=== PATIENT | male | born 1965 | race Hispanic/Latino ===

== ENCOUNTER 2020-03-11 15:03 | Inpatient (IN) | payer OTHER ==
--- NOTE | 2020-03-11 15:52 | RAD ---
EXAM: Single view of the chest HISTORY: Covid positive with pneumonia COMPARISON: None FINDINGS: Single view of the chest shows a normal sized cardiomediastinal silhouette. Multifocal airs pace opacities are seen in the lungs. This is greater in the lower lobes. The bones are unremarkable IMPRESSION: Multifocal pneumonia
[2020-03-11 16:10] LABS: Hemoglobin 6.9 g/dL (14.0-18.0); Mean Corpuscular HGB CONC 33.3 g/dL (32.0-36.0); Mean Corpuscular Hemoglobin 35.6 pg (27.0-31.0); Mean Platelet Volume 14.3 fL (7.4-10.4); Platelet Count 25 thou/uL (130-400); RBC Distribution Width 16.4 % (11.5-14.5); Red Blood Cell (RBC) Count 1.95 mill/uL (4.70-6.10); White Blood Cell (WBC) Count 8.5 thou/uL (4.8-10.8)
[2020-03-11 16:24] LABS: ALT (SGPT) 14 U/L (8-55); AST (SGOT) 42 U/L (5-34); Albumin 1.5 g/dL (3.5-5.0); Alkaline Phosphatase 65 U/L (40-110); Anion Gap 10 mmol/L (10-20); Anisocytosis SLIGHT = 6-15 cells (100X) (0-5/hpf); BUN (Urea Nitrogen) 44 mg/dL (8.4-25.7); Band 16 % (5-11); Bilirubin, Total 5.9 mg/dL (0.2-1.2); Calc. Creatinine Clearance 0 mL/min (70-130); Calcium 6.4 mg/dL (7.8-10.44); Carbon Dioxide 17 mmol/L (22-29); Chloride 100 mmol/L (98-107); Estimated GFR-MDRD 55; Globulin 3.6 g/dL (2.4-3.5); Glucose 96 mg/dL (70-105); MDiff Complete? YES; Macrocytosis SLIGHT = 6-15 cells (100X) (0-5/hpf); Metamyelocyte 1 % (0-0); Monocytes 1 % (0-10); Neutrophil 82 % (42-75); Ovalocytes SLIGHT = 2-5 cells (100X) (0-1/hpf); Platelet Morphology Comment Appears Decreased; Polychromasia SLIGHT = 2-3 cells (100X) (0-2/hpf); Potassium 4.1 mmol/L (3.5-5.1); Protein, Total 5.1 g/dL (6.0-8.3); Reflex for Review?? YES; Schistocytes SLIGHT = 2-5 cells (100X) (0-1/hpf); Sodium 123 mmol/L (136-145); Tear Drops SLIGHT = 2-5 cells (100X) (0-1/hpf)
[2020-03-11 17:00] LABS: Bilirubin 1+ (Negative); Blood, Urine Negative (Negative); Clarity Turbid (Clear); Glucose, Urine (Dipstick) Normal (Negative); Ketone, Urine Negative (Negative); Leukocyte 250 Leu/uL (Negative); Nitrite Negative (Negative); Protein, Urine (Dipstick) 10 mg/dL (Neg-Trace); RBC/HPF 0-3 HPF (0-3); Specific Gravity, Urine 1.016 (1.002-1.036); Squamous Epithelial 0-3 HPF (0-3); Urobilinogen Normal mg/dL (Less than 2); WBC/HPF 21-50 HPF (0-3)
[2020-03-11 17:03] LABS: Amphetamine Not Detected (NotDetected); Barbiturates Screen Not Detected (NotDetected); Benzodiazepine Screen Not Detected (NotDetected); Cocaine Metabolite Screen Not Detected (NotDetected); Medtox Control Line Valid? VALID (VALID); Medtox Reader # READER 1; Methadone Not Detected (NotDetected); Methamphetamine Not Detected (NotDetected); Opiate Screen Not Detected (NotDetected); Oxycodone Screen Not Detected (NotDetected); Phencyclidine (PCP) Not Detected (NotDetected); THC/Cannabinoid Screen Not Detected (NotDetected); Tricyclic Screen Not Detected (NotDetected)
[2020-03-11 17:06] LABS: Bacteria/HPF Rare-Few HPF (None Seen)
[2020-03-11] MEDS ORDERED: Azithromycin 500 MG VIAL ONE (17:51)
[2020-03-11] MEDS ORDERED: Ondansetron ODT 4 MG TAB PO PRN (18:30)
[2020-03-11] MEDS ORDERED: Acetaminophen 325 MG TAB PO PRN (18:30)
[2020-03-11] MEDS ORDERED: Ondansetron PF 4 MG/2 ML Vial IVP PRN (18:30)
[2020-03-11 20:10] VITALS: BMI 33.9
[2020-03-11 20:26] LABS: INR-International Normal Ratio 2.5; PTT 47.7 sec (22.9-36.1); Prothrombin Time 26.4 sec (12.0-14.7)
[2020-03-11] MEDS: Albumin 25% 25 GM/100 ML BOT IVPB SCH (20:40)
[2020-03-11] MEDS: Famotidine 20 MG TAB PO SCH (20:42)
[2020-03-11] MEDS: Ribavirin 200 MG CAP PO SCH (20:59)
[2020-03-12] MEDS: Albumin 25% 25 GM/100 ML BOT IVPB SCH ×3 (01:22→14:30)
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
[2020-03-12 05:46] LABS: #Lymphocytes 0.2 thou/uL (1.20-3.40); #Monocytes 0.1 thou/uL (0.11-0.59); #Neutrophils 1.9 thou/uL (1.40-6.50); %Basophils 0.9 % (0.0-1.0); %Eosinophils 0.3 % (0.0-10.0); %Lymphocytes 10.1 % (21.0-51.0); %Monocytes 4.1 % (0.0-10.0); %Neutrophils 84.6 % (42.0-75.0); Hemoglobin 7.5 g/dL (14.0-18.0); Mean Corpuscular HGB CONC 33.7 g/dL (32.0-36.0); Mean Corpuscular Hemoglobin 35.2 pg (27.0-31.0); Mean Platelet Volume 16.7 fL (7.4-10.4); Platelet Count 17 thou/uL (130-400); RBC Distribution Width 17.5 % (11.5-14.5); Red Blood Cell (RBC) Count 2.13 mill/uL (4.70-6.10); White Blood Cell (WBC) Count 2.2 thou/uL (4.8-10.8)
[2020-03-12 05:59] LABS: ALT (SGPT) 14 U/L (8-55); AST (SGOT) 24 U/L (5-34); Albumin 1.8 g/dL (3.5-5.0); Alkaline Phosphatase 53 U/L (40-110); Anion Gap 8 mmol/L (10-20); BUN (Urea Nitrogen) 47 mg/dL (8.4-25.7); Bilirubin, Total 6.3 mg/dL (0.2-1.2); Calc. Creatinine Clearance 116 mL/min (70-130); Calcium 6.9 mg/dL (7.8-10.44); Carbon Dioxide 20 mmol/L (22-29); Chloride 104 mmol/L (98-107); Estimated GFR-MDRD 74; Globulin 2.8 g/dL (2.4-3.5); Glucose 159 mg/dL (70-105); Potassium 3.6 mmol/L (3.5-5.1); Protein, Total 4.6 g/dL (6.0-8.3); Sodium 128 mmol/L (136-145)
[2020-03-12] MEDS: Famotidine 20 MG TAB PO SCH ×2 (08:23→20:50)
[2020-03-12] MEDS: Ribavirin 200 MG CAP PO SCH ×2 (08:23→20:50)
--- NOTE | 2020-03-12 12:25 | CON ---
DATE OF CONSULTATION: 03/12/2020 CONSULTING PHYSICIAN: Dr. Mcbride. REASON FOR CONSULTATION: Acute kidney injury. REASON FOR ADMISSION: Leg pain. HISTORY OF PRESENT ILLNESS: This is a 54-year-old male with history of hepatitis C, cirrhosis, CHF, came to the hospital with worsening renal function and edema, was found to have hepatorenal syndrome. He was started on albumin. His creatinine is better. His creatinine on admission was 1.36 and now it is 1.04. Sodium was 123, up to 128. He is also COVID positive. PAST MEDICAL HISTORY: Positive for hepatitis C, cirrhosis, CHF, thrombocytopenia. PAST SURGICAL HISTORY: Elbow surgery. HOME MEDICATIONS: Reviewed. ALLERGIES: NO KNOWN DRUG ALLERGIES. SOCIAL HISTORY: No smoking, alcohol, or illicit drug use. FAMILY HISTORY: No history of kidney disease. REVIEW OF SYSTEMS: Could not be obtained. PHYSICAL EXAMINATION: The patient is on COVID isolation. VITAL SIGNS: Temperature 98.2, pulse 72, respiratory rate 18, blood pressure 116/68. LABORATORY DATA: Potassium 3.6, sodium 128, creatinine is 1.04. ASSESSMENT AND PLAN: 1. Acute kidney injury, improved with albumin infusion, most likely from hypovolemia, so continue albumin, 4 to 8 doses. Monitor renal function. 2. Hyponatremia, better too with albumin infusion. 3. Mild acidosis. 4. Hypocalcemia. 5. Hypoalbuminemia. 6. History of cirrhosis. 7. Anemia of chronic disease. 8. Thrombocytopenia. Renal function is much better. Continue albumin infusion. Monitor renal function. Avoid nephrotoxins. I will sign off. Please call back with any questions. Job ID: [id number]
--- NOTE | 2020-03-12 13:12 | PDOC.HOSPP ---
- Subjective Encounter Date: 03/12/20 Subjective: Feeling a little bit better. Says he feels a little short of breath at times. Minimal cough. - Objective Vital Signs & Weight: Vital Signs (12 hours) Temp Pulse Resp BP Pulse Ox 03/12/20 09:00 98.2 F 76 18 116/68 96 03/12/20 08:00 96 03/12/20 05:32 97.9 F 79 20 111/65 93 L Weight Weight 223 lb 3.2 oz I&O: 03/11/20 03/12/20 03/13/20 06:59 06:59 06:59 Intake Total 350 0 Balance 350 0 Result Diagrams: 03/12/20 05:01 03/12/20 05:01 Hospitalist ROS - Medication Medications: Active Medications Generic Name Dose Route Start Last Admin Trade Name Freq PRN Reason Stop Dose Admin Albumin Human 25 gm 03/11/20 20:00 03/12/20 08:26 Albumin 25% IVPB 03/12/20 14:01 25 gm Q6H DIVYA Administration Famotidine 20 mg 03/11/20 21:00 03/12/20 08:23 Pepcid PO 20 mg BID DIVYA Administration Lactulose 10 gm 03/11/20 21:00 03/12/20 08:23 Lactulose PO 10 gm TID DIVYA Administration Ribavirin 400 mg 03/11/20 21:00 03/12/20 08:23 Ribavirin PO 400 mg BID DIVYA Administration - Exam General Appearance: NAD, awake alert General - other findings: Jaundiced Neck: supple, symmetric, no JVD, no thyromegaly, no lymphadenopathy, no carotid bruit Heart: RRR, no murmur, no gallops, no rubs, normal peripheral pulses Respiratory: CTAB, no wheezes, no rales, no ronchi, normal chest expansion, no tachypnea, normal percussion Gastrointestinal: soft, non-tender, distended Gastrointestinal - other findings: Some ascites. Not tense. Extremities - other findings: 3+ pitting edema both lower extremities to the level of the abdomen. Skin - other findings: Jaundiced. Pitting. Neurological: no new deficit Musculoskeletal: normal tone Psychiatric: normal affect, normal behavior, A&O x 3 Hosp A/P (1) Anasarca Code(s): R60.1 - GENERALIZED EDEMA Status: Acute (2) Hypotension Status: Acute (3) COVID-19 virus infection Code(s): U07.1 - COVID-19 Status: Acute (4) Cirrhosis Code(s): K74.60 - UNSPECIFIED CIRRHOSIS OF LIVER Status: Acute (5) Hepatitis C Code(s): B19.20 - UNSPECIFIED VIRAL HEPATITIS C WITHOUT HEPATIC COMA Status: Acute (6) Liver failure Status: Acute (7) Pancytopenia Code(s): D61.818 - OTHER PANCYTOPENIA Status: Acute (8) Hyponatremia Code(s): E87.1 - HYPO-OSMOLALITY AND HYPONATREMIA Status: Acute (9) Seizure disorder Code(s): G40.909 - EPILEPSY, UNSP, NOT INTRACTABLE, WITHOUT STATUS EPILEPTICUS Status: Acute (10) COLLINS (acute kidney injury) Code(s): N17.9 - ACUTE KIDNEY FAILURE, UNSPECIFIED Status: Acute (11) Hepatorenal syndrome Code(s): K76.7 - HEPATORENAL SYNDROME Status: Acute - Plan Anasarca: Secondary to liver failure. Sounds less likely to be related to significant heart failure based on the information given to me by the patient today. Hypotension: Secondary to poor oncotic pressures and dehydration. Improved with albumin. Hyponatremia: Secondary to chronic liver disease and acute kidney injury. Improved with albumin and some fluids. Hepatorenal syndrome: Patient has end-stage liver disease with severe hypoalbuminemia and anasarca. He has improved with albumin infusion. Appreciate nephrology consult. End-stage liver disease: Secondary to chronic hep C. GI consult appreciated. Discussed with GI. Not much more to be offered at this time. Continue with lactulose and diuretics. Hepatitis C: Patient remains on antiviral therapy. COVID 19 infection: Patient appears to be tolerating this very well. Not really requiring much in the way of oxygen supplementation. Continue with Decadron. Severe pancytopenia: Secondary to his chronic liver disease. Stable. Possible liver masses: Patient reports that he was told in May that he had a nodule on his liver. He had follow-up imaging sometime around August and told that there was a second 1 but that the lesions were not enlarging and they were not of concern. He will need to follow-up with [facility] [[email or web address]] as previously arranged for continued follow-up of this. Seizure disorder: Stable. Continue Keppra. Coagulopathy: Secondary to chronic liver disease. Disposition: If patient does not develop significant hypoxia and otherwise remained stable by tomorrow he can likely be discharged to an infirmary.
[2020-03-12] MEDS: Dexamethasone 6 MG in Sodium Chloride 0.9% 50 ML IVPB SCH (14:17)
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
[2020-03-13] MEDS: Famotidine 20 MG TAB PO SCH ×2 (07:51→20:52)
[2020-03-13] MEDS: Ribavirin 200 MG CAP PO SCH (07:52)
[2020-03-13] MEDS: Dexamethasone 6 MG in Sodium Chloride 0.9% 50 ML IVPB SCH (08:28)
[2020-03-13 13:36] LABS: #Lymphocytes 0.4 thou/uL (1.20-3.40); #Monocytes 0.4 thou/uL (0.11-0.59); #Neutrophils 6.2 thou/uL (1.40-6.50); %Basophils 0.1 % (0.0-1.0); %Eosinophils 0.1 % (0.0-10.0); %Lymphocytes 5.1 % (21.0-51.0); %Monocytes 5.2 % (0.0-10.0); %Neutrophils 89.6 % (42.0-75.0); Hemoglobin 9.4 g/dL (14.0-18.0); Mean Corpuscular HGB CONC 33.3 g/dL (32.0-36.0); Mean Corpuscular Hemoglobin 34.9 pg (27.0-31.0); Mean Platelet Volume 14.4 fL (7.4-10.4); Platelet Count 39 thou/uL (130-400); RBC Distribution Width 17.6 % (11.5-14.5); White Blood Cell (WBC) Count 6.9 thou/uL (4.8-10.8)
[2020-03-13 14:00] LABS: Anion Gap 10 mmol/L (10-20); BUN (Urea Nitrogen) 29 mg/dL (8.4-25.7); Calc. Creatinine Clearance 186 mL/min (70-130); Carbon Dioxide 19 mmol/L (22-29); Chloride 109 mmol/L (98-107); Estimated GFR-MDRD Greater than 90; Glucose 174 mg/dL (70-105); Potassium 3.6 mmol/L (3.5-5.1); Sodium 134 mmol/L (136-145)
--- NOTE | 2020-03-13 18:07 | PDOC.HOSPP ---
- Subjective Encounter Date: 03/13/20 Encounter Time: 10:30 Subjective: Pt seen for followup re: COVID 19 pneumonia. Denies chest pain or shortness of breath. - Objective Vital Signs & Weight: Vital Signs (12 hours) Pulse Ox 03/13/20 08:00 95 Weight Weight 223 lb 3.2 oz I&O: 03/12/20 03/13/20 03/14/20 06:59 06:59 06:59 Intake Total 350 0 Output Total 600 Balance 350 0 -600 Result Diagrams: 03/13/20 13:23 03/13/20 13:23 Additional Labs: Labs and MARs reviewed by mn Hospitalist ROS - Medication Medications: Active Medications Generic Name Dose Route Start Last Admin Trade Name Freq PRN Reason Stop Dose Admin Famotidine 20 mg 03/11/20 21:00 03/13/20 07:51 Pepcid PO 20 mg BID DIVYA Administration Dexamethasone 6 mg/ Sodium 50.6 mls @ 100 mls/hr 03/12/20 09:00 03/13/20 08: 28 Chloride IVPB 50.6 mls DAILY DIVYA Administration Lactulose 10 gm 03/11/20 21:00 03/13/20 14:57 Lactulose PO Not Given TID DIVYA Hosp A/P - Plan - Assessment (1) COVID-19 virus pneumonia Code(s): U07.1 - COVID-19 Status: Acute (2) Hyponatremia Code(s): U07.1 - COVID-19 Status: Acute (3) Cirrhosis Code(s): K74.60 - UNSPECIFIED CIRRHOSIS OF LIVER Status: Chronic (4) Hepatitis C Code(s): B19.20 - UNSPECIFIED VIRAL HEPATITIS C WITHOUT HEPATIC COMA Status: Chronic (5) Liver failure Status: Chronic (6) Pancytopenia Code(s): D61.818 - OTHER PANCYTOPENIA Status: Chronic (7) Seizure disorder Code(s): G40.909 - EPILEPSY, UNSP, NOT INTRACTABLE, WITHOUT STATUS EPILEPTICUS Status: Acute (8) COLLINS (acute kidney injury) Code(s): N17.9 - ACUTE KIDNEY FAILURE, UNSPECIFIED Status: resolved (9) Hepatorenal syndrome Code(s): K76.7 - HEPATORENAL SYNDROME Status: Acute (10) Hypotension Status: Resolved - Plan COVID 19 pneumonia Patient clinically improving. Continue dexamethasone Anasarca: Secondary to liver failure. Sounds less likely to be related to significant heart failure based on the information given to me by the patient today. Hypotension: Improved with albumin. Hyponatremia: Sodium improved to 134. Hepatorenal syndrome: Patient has end-stage liver disease with severe hypoalbuminemia and anasarca. He has improved with albumin infusion. Appreciate nephrology consult. End-stage liver disease: Secondary to chronic hep C. Hepatitis C: GI service recommends discontinuing ribavirin and follow up with pt's GI specialist (ribavirin usually givedn with a second agent, can cause pancytopenia ). Severe pancytopenia: Stable. Possible liver masses: Needs to follow-up with [facility]. Seizure disorder: Stable. Pt is on Keppra. Coagulopathy: Secondary to chronic liver disease. Pt needs informary bed.
[2020-03-14] MEDS: Dexamethasone 6 MG in Sodium Chloride 0.9% 50 ML IVPB SCH (07:47)
[2020-03-14] MEDS: Famotidine 20 MG TAB PO SCH ×2 (07:47→20:09)
--- NOTE | 2020-03-14 09:18 | PRG ---
DATE OF SERVICE: 03/13/2020 SUBJECTIVE: This is a 54-year-old elevation of The patient was also hyponatremic. He was seen by Nephrology and was advised to continue with IV albumin. The patient . Normally people usually take . I am really not sure . The patient is awake and alert . diet. OBJECTIVE: VITAL SIGNS: Afebrile, pulse . CARDIOVASCULAR SYSTEM: . ABDOMEN: RECOMMENDATION: 1. I would probably for the time being. 2. CBC and chem-7 ordered today . Job ID: [id number]
--- NOTE | 2020-03-14 12:33 | PRG ---
DATE OF SERVICE: 03/14/2020 SUBJECTIVE: This is a 54-year-old male, hospitalized because of ascites, generalized weakness, fatigue, hyponatremia, anemia, thrombocytopenia. The patient is know to have liver cirrhosis from before. Also has history of hepatitis C, but he was only taking ribavirin, which was discontinued yesterday because of the anemia and thrombocytopenia. He has markedly improved since his admission. He is on IV fluids. His labs are actually close to being normal. The sodium is back to normal at 134, potassium 3.6, chloride 109, bicarb is 19. His BUN is down to 29, creatinine is down to 0.65, glucose 174. His CBC again shows improvement. His hemoglobin is 9.4, hematocrit 28.2, platelet count is 39,000. PHYSICAL EXAMINATION: GENERAL: He appears comfortable. He is awake and alert and communicative. VITAL SIGNS: Afebrile. Pulse is 77, blood pressure 119/75. CARDIOVASCULAR: Normal heart sounds. LUNGS: Clear to auscultation. ABDOMEN: Soft. Abdomen is nontender. He has ascites. RECOMMENDATIONS: 1. Continue hydration. 2. Follow up labs. He is doing from GI standpoint much better and I will sign off from today. If there are any new issues, please call me back. Job ID: [id number]
--- NOTE | 2020-03-14 15:58 | PDOC.HOSPP ---
- Subjective Encounter Date: 03/14/20 Encounter Time: 10:30 Subjective: Patient was seen for follow-up for COVID-19 pneumonia. He reports feeling better. He denies any chest pain. Cough is better. - Objective Vital Signs & Weight: Vital Signs (12 hours) Temp Pulse Resp BP Pulse Ox 03/14/20 15:35 97.7 F 77 18 131/66 98 03/14/20 10:44 97 F L 77 18 119/73 96 03/14/20 08:15 97.3 F L 72 18 138/75 96 Weight Weight 223 lb 3.2 oz I&O: 03/13/20 03/14/20 03/15/20 06:59 06:59 06:59 Intake Total 0 Output Total 600 Balance 0 -600 Result Diagrams: 03/13/20 13:23 03/13/20 13:23 Additional Labs: Labs and MAR were reviewed by me. Hospitalist ROS - Review of Systems Respiratory: reports: cough, dry. denies: shortness of breath, hemoptysis, SOB with excertion, pleuritic pain, sputum, wheezing Cardiovascular: denies: chest pain, palpitations, orthopnea, paroxysmal noc. dyspnea, edema, light headedness - Medication Medications: Active Medications Generic Name Dose Route Start Last Admin Trade Name Freq PRN Reason Stop Dose Admin Famotidine 20 mg 03/11/20 21:00 03/14/20 07:47 Pepcid PO 20 mg BID DIVYA Administration Dexamethasone 6 mg/ Sodium 50.6 mls @ 100 mls/hr 03/12/20 09:00 03/14/20 07: 47 Chloride IVPB 50.6 mls DAILY DIVYA Administration Lactulose 10 gm 03/11/20 21:00 03/14/20 15:22 Lactulose PO 10 gm TID DIVYA Administration - Exam General Appearance: awake alert Eye: anicteric sclera ENT: moist mucosa Neck: supple Heart: RRR Respiratory: CTAB, no wheezes Gastrointestinal: soft, non-tender Extremities: no cyanosis Musculoskeletal: no muscle wasting Psychiatric: normal affect, normal behavior Hosp A/P - Plan - Assessment (1) COVID-19 virus pneumonia Code(s): U07.1 - COVID-19 Status: Acute (2) Hyponatremia Code(s): U07.1 - COVID-19 Status: Acute (3) Cirrhosis Code(s): K74.60 - UNSPECIFIED CIRRHOSIS OF LIVER Status: Chronic (4) Hepatitis C Code(s): B19.20 - UNSPECIFIED VIRAL HEPATITIS C WITHOUT HEPATIC COMA Status: Chronic (5) Liver failure Status: Chronic (6) Pancytopenia Code(s): D61.818 - OTHER PANCYTOPENIA Status: Chronic (7) Seizure disorder Code(s): G40.909 - EPILEPSY, UNSP, NOT INTRACTABLE, WITHOUT STATUS EPILEPTICUS Status: Acute (8) COLLINS (acute kidney injury) Code(s): N17.9 - ACUTE KIDNEY FAILURE, UNSPECIFIED Status: resolved (9) Hepatorenal syndrome Code(s): K76.7 - HEPATORENAL SYNDROME Status: Acute (10) Hypotension Status: Resolved - Plan COVID 19 pneumonia Patient clinically improving. Continue dexamethasone Anasarca: Secondary to liver failure. Hypotension: Improved with albumin. Hyponatremia: Check AM labs. Hepatorenal syndrome: Patient has end-stage liver disease with severe hypoalbuminemia and anasarca. He has improved with albumin infusion. Appreciate nephrology consult. End-stage liver disease: Secondary to chronic hep C. Hepatitis C: GI service recommends discontinuing ribavirin and follow up with pt's GI specialist (ribavirin usually given with a second agent, can cause pancytopenia) . Severe pancytopenia: Stable. Possible liver masses: Needs to follow-up with [facility]. Seizure disorder: Stable. Pt is on Keppra. Coagulopathy: Secondary to chronic liver disease. Pt needs [facility] bed.
[2020-03-14] MEDS ORDERED: levETIRAcetam 500 MG TAB PO SCH (16:45)
[2020-03-15 05:29] LABS: #Lymphocytes 0.3 thou/uL (1.20-3.40); #Monocytes 0.3 thou/uL (0.11-0.59); %Eosinophils 0.5 % (0.0-10.0); %Lymphocytes 6.8 % (21.0-51.0); %Monocytes 5.5 % (0.0-10.0); %Neutrophils 87.1 % (42.0-75.0); Hemoglobin 8.9 g/dL (14.0-18.0); Mean Corpuscular HGB CONC 31.9 g/dL (32.0-36.0); Mean Corpuscular Hemoglobin 33.7 pg (27.0-31.0); Mean Platelet Volume 13.3 fL (7.4-10.4); Platelet Count 35 thou/uL (130-400); RBC Distribution Width 17.9 % (11.5-14.5); Red Blood Cell (RBC) Count 2.64 mill/uL (4.70-6.10); White Blood Cell (WBC) Count 4.6 thou/uL (4.8-10.8)
[2020-03-15 05:44] LABS: Anion Gap 6 mmol/L (10-20); BUN (Urea Nitrogen) 15 mg/dL (8.4-25.7); Calc. Creatinine Clearance 216 mL/min (70-130); Calcium 7.2 mg/dL (7.8-10.44); Carbon Dioxide 23 mmol/L (22-29); Chloride 111 mmol/L (98-107); Estimated GFR-MDRD Greater than 90; Glucose 124 mg/dL (70-105); Potassium 3.6 mmol/L (3.5-5.1); Sodium 136 mmol/L (136-145)
[2020-03-15] MEDS: levETIRAcetam 500 MG TAB PO SCH (08:29)
[2020-03-15] MEDS: Famotidine 20 MG TAB PO SCH ×2 (08:29→20:21)
[2020-03-15] MEDS: Dexamethasone 6 MG in Sodium Chloride 0.9% 50 ML IVPB SCH (08:29)
--- NOTE | 2020-03-15 13:35 | DIS ---
DATE OF ADMISSION: 03/11/2020 DATE OF DISCHARGE: 03/15/2020 PRIMARY CARE PROVIDER: Unknown. DISCHARGE DIAGNOSES: 1. COVID-19 pneumonia. 2. Hyponatremia. 3. Pancytopenia. 4. Chronic hepatitis C. 5. Acute kidney injury. CONDITION OF THE PATIENT ON THE DAY OF DISCHARGE: Stable. I assessed Mr. Schulte on the day of discharge. He denies any chest pain or shortness of breath. Vital signs are stable. S1 and S2 are heard, regular. Lungs are clear to auscultation bilaterally. CONSULTATIONS DURING THIS HOSPITALIZATION: Nephrology, Dr. Pruitt and Gastroenterology, Dr. Peterson. DISCHARGE MEDICATIONS: 1. The patient has been advised to stop ribavirin and to follow up with his liver specialist regarding treatment of hepatitis C. 2. His discharge medications include Coreg 12.5 mg daily. 3. Lasix 20 mg 2 times a day. 4. Lactulose 20 g three times a day. 5. Keppra 250 mg daily. 6. Omeprazole 10 mg daily. 7. Potassium chloride 20 mEq daily. 8. Dexamethasone 6 mg daily for 5 more days. HOSPITAL COURSE: Mr. Schulte is a pleasant 54-year-old gentleman who was admitted to [facility] on March 11, 2020 for COVID pneumonia and hyponatremia. He was seen by Nephrology and Gastroenterology Services. Gastroenterology Service recommended discontinuing ribavirin since it is not advisable to use it as monotherapy and could cause pancytopenia. Ribavirin was discontinued, with improvement in his blood counts. He received dexamethasone for COVID-19 pneumonia, which is being continued at the time of discharge. He also had acute kidney injury at the time of admission. Both acute kidney injury and hyponatremia improved with albumin infusion. He is being discharged to [facility] for further management. On the day of discharge, he has sodium of 136, potassium of 3.6, and creatinine 0.56. White count 4600, hemoglobin 8.9, and platelet count 35,000. POST-ACUTE CARE FOLLOWUP: With primary care provider in 3 days. The patient is also advised to follow up with his liver specialist. DIET: Heart healthy. ACTIVITY: No restrictions. DISCHARGE DESTINATION: To [facility] with [facility]. Total amount of time spent coordinating this discharge: 33 minutes. Job ID: [id number]
--- NOTE | 2020-03-15 18:47 | PDOC.HOSPP ---
- Subjective Encounter Date: 03/15/20 Encounter Time: 18:45 Subjective: Pt seen for followup re: pneumonia due to COVID-19. Feels better today. - Objective Vital Signs & Weight: Vital Signs (12 hours) Temp Pulse Resp BP Pulse Ox 03/15/20 08:00 98.2 F 75 18 125/71 96 Weight Weight 223 lb 3.2 oz I&O: 03/14/20 03/15/20 03/16/20 06:59 06:59 06:59 Output Total 600 200 Balance -600 -200 Result Diagrams: 03/15/20 05:04 03/15/20 05:04 Additional Labs: Labs and MARs reviewed by pa Hospitalist ROS - Review of Systems Respiratory: reports: cough, dry. denies: shortness of breath, hemoptysis, SOB with excertion, pleuritic pain, sputum, wheezing Gastrointestinal: denies: nausea, vomiting, abdominal pain, diarrhea, constipation, melena - Medication Medications: Active Medications Generic Name Dose Route Start Last Admin Trade Name Freq PRN Reason Stop Dose Admin Famotidine 20 mg 03/11/20 21:00 03/15/20 08:29 Pepcid PO 20 mg BID DIVYA Administration Dexamethasone 6 mg/ Sodium 51.5 mls @ 101.756 mls/hr 03/15/20 09:00 03/15/20 08:29 Chloride IVPB 51.5 mls DAILY DIVYA Administration Lactulose 10 gm 03/11/20 21:00 03/15/20 15:46 Lactulose PO 10 gm TID DIVYA Administration Levetiracetam 250 mg 03/15/20 09:00 03/15/20 08:29 Keppra PO 250 mg QAM DIVYA Administration - Exam General - other findings: Obese Eye: anicteric sclera ENT: normocephalic atraumatic Heart: RRR Respiratory: CTAB Gastrointestinal: soft, non-tender Extremities: no cyanosis Psychiatric: normal affect, normal behavior Hosp A/P - Plan - Assessment (1) COVID-19 virus pneumonia Code(s): U07.1 - COVID-19 Status: Acute (2) Hyponatremia Code(s): U07.1 - COVID-19 Status: Resolved (3) Cirrhosis Code(s): K74.60 - UNSPECIFIED CIRRHOSIS OF LIVER Status: Chronic (4) Hepatitis C Code(s): B19.20 - UNSPECIFIED VIRAL HEPATITIS C WITHOUT HEPATIC COMA Status: Chronic (5) Liver failure Status: Chronic (6) Pancytopenia Code(s): D61.818 - OTHER PANCYTOPENIA Status: Chronic (7) Seizure disorder Code(s): G40.909 - EPILEPSY, UNSP, NOT INTRACTABLE, WITHOUT STATUS EPILEPTICUS Status: Acute (8) COLLINS (acute kidney injury) Code(s): N17.9 - ACUTE KIDNEY FAILURE, UNSPECIFIED Status: resolved (9) Hepatorenal syndrome Code(s): K76.7 - HEPATORENAL SYNDROME Status: Acute (10) Hypotension Status: Resolved - Plan COVID 19 pneumonia Patient clinically improved, continue Decadron. Anasarca: Secondary to liver failure. Hypotension: Improved Hyponatremia: resolved Hepatorenal syndrome: Patient has end-stage liver disease with severe hypoalbuminemia and anasarca. He has improved with albumin infusion. Appreciate nephrology consult. End-stage liver disease: Secondary to chronic hep C. Hepatitis C: Ribavirin discontinued Severe pancytopenia: Stable. Possible liver masses: Needs to follow-up with [facility]. Seizure disorder: Stable. Pt is on Keppra. Coagulopathy: Secondary to chronic liver disease. Pt needs [facility] bed.
[2020-03-16 06:33] LABS: #Lymphocytes 0.5 thou/uL (1.20-3.40); #Monocytes 0.3 thou/uL (0.11-0.59); #Neutrophils 5.1 thou/uL (1.40-6.50); %Eosinophils 0.5 % (0.0-10.0); %Lymphocytes 7.9 % (21.0-51.0); %Monocytes 5.7 % (0.0-10.0); %Neutrophils 85.9 % (42.0-75.0); Hemoglobin 9.6 g/dL (14.0-18.0); Mean Corpuscular HGB CONC 32.1 g/dL (32.0-36.0); Mean Corpuscular Hemoglobin 34.1 pg (27.0-31.0); Platelet Count 37 thou/uL (130-400); RBC Distribution Width 18.1 % (11.5-14.5); Red Blood Cell (RBC) Count 2.82 mill/uL (4.70-6.10); White Blood Cell (WBC) Count 5.9 thou/uL (4.8-10.8)
[2020-03-16 06:49] LABS: Anion Gap 7 mmol/L (10-20); BUN (Urea Nitrogen) 13 mg/dL (8.4-25.7); Calc. Creatinine Clearance 202 mL/min (70-130); Calcium 7.4 mg/dL (7.8-10.44); Carbon Dioxide 25 mmol/L (22-29); Chloride 110 mmol/L (98-107); Estimated GFR-MDRD Greater than 90; Glucose 113 mg/dL (70-105); Potassium 3.8 mmol/L (3.5-5.1); Sodium 138 mmol/L (136-145)
[2020-03-16] MEDS: levETIRAcetam 500 MG TAB PO SCH (08:05)
[2020-03-16] MEDS: Famotidine 20 MG TAB PO SCH ×2 (08:05→20:35)
[2020-03-16] MEDS: Dexamethasone 6 MG in Sodium Chloride 0.9% 50 ML IVPB SCH (08:05)
--- NOTE | 2020-03-16 20:08 | PDOC.HOSPP ---
- Subjective Encounter Date: 03/16/20 Encounter Time: 20:06 Subjective: Pt seen for followup for COVID 19 pneumonia. No new complaints. - Objective Vital Signs & Weight: Vital Signs (12 hours) Temp Pulse Resp BP Pulse Ox 03/16/20 08:20 97.8 F 82 18 128/80 98 Weight Weight 223 lb 3.2 oz I&O: 03/15/20 03/16/20 03/17/20 06:59 06:59 06:59 Intake Total 600 Output Total 200 600 Balance -200 0 Result Diagrams: 03/16/20 06:13 03/16/20 06:13 Additional Labs: Labs and MARs reviewed by [place] Hospitalist ROS - Review of Systems Constitutional: denies: fever, chills, sweats, weakness, malaise ENT: denies: throat swelling Respiratory: denies: cough, shortness of breath Cardiovascular: denies: chest pain, palpitations, orthopnea, paroxysmal noc. dyspnea, edema, light headedness Gastrointestinal: denies: nausea, vomiting, abdominal pain, diarrhea, constipation, melena, hematochezia - Medication Medications: Active Medications Generic Name Dose Route Start Last Admin Trade Name Freq PRN Reason Stop Dose Admin Famotidine 20 mg 03/11/20 21:00 03/16/20 08:05 Pepcid PO 20 mg BID DIVYA Administration Dexamethasone 6 mg/ Sodium 51.5 mls @ 101.756 mls/hr 03/15/20 09:00 03/16/20 08:05 Chloride IVPB 51.5 mls DAILY DIVYA Administration Lactulose 10 gm 03/11/20 21:00 03/16/20 15:02 Lactulose PO Not Given TID DIVYA Levetiracetam 250 mg 03/15/20 09:00 03/16/20 08:05 Keppra PO 250 mg QAM DIVYA Administration - Exam General Appearance: awake alert Eye: anicteric sclera ENT: moist mucosa Neck: supple Heart: no gallops, no rubs Respiratory: no wheezes, no rales Gastrointestinal: soft Psychiatric: normal affect, normal behavior Hosp A/P - Plan - Assessment (1) COVID-19 virus pneumonia Code(s): U07.1 - COVID-19 Status: Acute (2) Hyponatremia Code(s): U07.1 - COVID-19 Status: Resolved (3) Cirrhosis Code(s): K74.60 - UNSPECIFIED CIRRHOSIS OF LIVER Status: Chronic (4) Hepatitis C Code(s): B19.20 - UNSPECIFIED VIRAL HEPATITIS C WITHOUT HEPATIC COMA Status: Chronic (5) Liver failure Status: Chronic (6) Pancytopenia Code(s): D61.818 - OTHER PANCYTOPENIA Status: Chronic (7) Seizure disorder Code(s): G40.909 - EPILEPSY, UNSP, NOT INTRACTABLE, WITHOUT STATUS EPILEPTICUS Status: Acute (8) COLLINS (acute kidney injury) Code(s): N17.9 - ACUTE KIDNEY FAILURE, UNSPECIFIED Status: resolved (9) Hepatorenal syndrome Code(s): K76.7 - HEPATORENAL SYNDROME Status: Acute (10) Hypotension Status: Resolved - Plan COVID 19 pneumonia Pt clinically doing well, continue dexamethasone Anasarca: Secondary to liver failure. Hypotension: Improved Hyponatremia: resolved End-stage liver disease: Secondary to chronic hep C. Hepatitis C: Pt is off of ribavirin. Severe pancytopenia: Stable. Possible liver masses: Needs to follow-up with [facility]. Seizure disorder: Stable. Pt is on Keppra. Coagulopathy: Secondary to chronic liver disease. Pt needs [facility] bed.
[2020-03-16 20:53] VITALS: BP 142/78; TEMP 98.1
--- NOTE | 2020-03-17 05:23 | DIS ---
DATE OF ADMISSION: 03/11/2020 DATE OF DISCHARGE: 03/16/2020 PRIMARY CARE PROVIDER: Unknown. DISCHARGE DIAGNOSES: 1. Coronavirus disease 2019 pneumonia. 2. Hyponatremia. 3. Pancytopenia. 4. Chronic hepatitis C. 5. Acute kidney injury. CONDITION OF THE PATIENT ON THE DAY OF DISCHARGE: Stable. I assessed Mr. Schulte on March 16, 2020. He denied any complaints. Vital signs are stable. S1 and S2 are heard, regular. Lungs are clear to auscultation bilaterally. Please note that I dictated a discharge summary on Mr. Schulte on March 15, 2020. He could not go to [facility] that day. He is being discharged the following day to [facility]. CONSULTATIONS: As dictated in my discharge summary dated March 15, 2020. DISCHARGE MEDICATIONS: As dictated in my discharge summary dated March 15, 2020. HOSPITAL COURSE: As dictated in my discharge summary dated March 15, 2020. POST ACUTE CARE FOLLOWUP: As dictated in my discharge summary dated March 15, 2020. DIET: As dictated in my discharge summary dated March 15, 2020. ACTIVITY: As dictated in my discharge summary dated March 15, 2020. DISCHARGE DESTINATION: As dictated in my discharge summary dated March 15, 2020. TOTAL AMOUNT OF TIME SPENT COORDINATING THIS DISCHARGE: 15 minutes. Job ID: [id number]
== END 2020-03-16 21:15 | DRG 177 ==
LOC: ERS 15:03 → T4-B 16:40 → EEVIPCON 16:40
PROVIDERS: ADMIT Internal Medicine; ATTEND Internal Medicine
PROC: 30233N1 Transfusion of Nonautologous Red Blood Cells into Peripheral Vein, Percutaneous Approach (ICD-10-PCS; principal; 2020-03-11)
PROC: 8E0ZXY6 Isolation (ICD-10-PCS; 2020-03-11)
PROC: 30233R1 Transfusion of Nonautologous Platelets into Peripheral Vein, Percutaneous Approach (ICD-10-PCS; 2020-03-12)
DX: U07.1 COVID-19 (principal); J12.89 Other viral pneumonia; K76.7 Hepatorenal syndrome; E87.1 Hypo-osmolality and hyponatremia; N17.9 Acute kidney failure, unspecified; E87.2 Acidosis; D61.818 Other pancytopenia; D68.9 Coagulation defect, unspecified; I95.9 Hypotension, unspecified; E86.9 Volume depletion, unspecified; E88.09 Other disorders of plasma-protein metabolism, not elsewhere classified; D63.1 Anemia in chronic kidney disease; D69.59 Other secondary thrombocytopenia; K74.60 Unspecified cirrhosis of liver; G40.909 Epilepsy, unspecified, not intractable, without status epilepticus; E86.1 Hypovolemia; E83.51 Hypocalcemia; E86.0 Dehydration; B18.2 Chronic viral hepatitis C; N18.9 Chronic kidney disease, unspecified; D73.1 Hypersplenism; K72.10 Chronic hepatic failure without coma; R16.0 Hepatomegaly, not elsewhere classified
CPT/HCPCS: 36415; 36430; 71045; 80048; 80053; 80306; 81003; 81015; 82140; 82728; 83605; 83880; 84145; 84484; 85025; 85060; 85379; 85610; 85652; 85730; 86140; 86850; 86900; 86901; 86921; 87040; 87086; 90471; 90732; 96361; 96365; G0009; J0456; J1100; P9016; P9035; P9047